=== PATIENT | female | born 1995 | race Caucasian/White ===

== ENCOUNTER 2023-11-16 15:27 | Inpatient (IN) | payer OTHER ==
[~2023-11-16] VITALS: Ht 185.4 cm; Wt 135.9 kg
[~2023-11-16 15:27] MED LIST: IBUPROFEN200 M1 PO
[2023-11-17] VITALS (37 sets, daily range): BP systolic 114–156; BP diastolic 59–87; PULSE 73–106; TEMP 97.9–98.2
[2023-11-17] MEDS ORDERED: LR & Oxytocin 500 ML IV SCH ×2 (06:30)
[2023-11-17] MEDS ORDERED: LR 1,000 ML IV SCH (06:30)
--- NOTE | 2023-11-17 06:30 | NUR ---
Pt arrived on unit ambulatory for scheduled induction of labor. Pt denies any regular contractions, leaking of fluid or vaginal bleeding and reports normal movement. EFM and toco monitors started. Difficult tracing FHR. Audible and palpable movement noted. Vital signs WNL. Plan of care for induction reviewed with pt and at the bedside. Both verbalized an understanding, agreed with the plan and states no questions or concerns.
[2023-11-17] MEDS ORDERED: PRENATAL (06:57)
[2023-11-17 07:37] LABS: BASO % 0.5 % (0.0-2.0); EOS # 0.2 K/mm3 (0.0-0.7); EOS % 1.9 % (0.0-4.0); GRAN # 6.7 K/mm3 (1.4-6.5); GRAN % 77.6 % (42.2-75.2); HEMOGLOBIN 11.4 g/dl (12.5-16.0); LYMPH # 1.2 K/mm3 (1.2-3.4); LYMPH % 14.2 % (20.0-51.0); MEAN CELL VOLUME 81 fl (80.0-100.0); MEAN CORPUSCULAR HEMOGLOBIN 28 pg (27-31); MEAN CORPUSCULAR HGB CONC 34 g/dl (33.0-37.0); MEAN PLATELET VOLUME 10.3 fl (7.4-10.4); MONO # 0.5 K/mm3 (0.1-0.6); MONO % 5.2 % (1.7-9.3); PLATELET COUNT 219 K/mm3 (130-400); RED BLOOD COUNT 4.13 M/mm3 (4.10-5.30)
[2023-11-17 07:39] LABS: HEMATOCRIT 33.6 % (37.0-47.0)
--- NOTE | 2023-11-17 09:05 | NUR ---
Dr. Pierce at the bedside. FHR tracing reviewed. SVE and AROM done per Dr. Pierce. scalp electrode reviewed with pt and placed by Dr. Pierce.
[2023-11-17] MEDS ORDERED: ROPivacaine PF 0.2% 200 ML IV ONE (10:20)
--- NOTE | 2023-11-17 10:30 | NUR ---
Difficult tracing ctx while pt sitting up for epidural placement.
--- NOTE | 2023-11-17 10:35 | NUR ---
1020 - JEFERSON Shin at the bedside for epidural placement per pt's request. Pt sitting up on the edge of the bed. Time out done. 1035 - Test dose given per JEFERSON Shni. See anesthesia records for details. 1040 - Assisted pt back to supine position with left wedge. Monitors adjusted. Plan of care reviewed.
--- NOTE | 2023-11-17 10:45 | NUR ---
Difficult tracing ctx while pt sitting up for epidural placement.
[2023-11-17] MEDS ORDERED: diphenhydrAMINE 50 MG/ML 1 ML VIAL IV PRN (11:00)
[2023-11-17] MEDS ORDERED: ePHEDrine 50 MG/10 ML VIAL IV PRN (11:00)
[2023-11-17] MEDS ORDERED: diphenhydrAMINE 25 MG CAP PO PRN (11:00)
[2023-11-17] MEDS ORDERED: Ondansetron 4 MG/2 ML VIAL IV PRN (11:00)
[2023-11-17] MEDS ORDERED: Naloxone 0.4 MG/ML VIAL IV PRN ×2 (11:00→16:30)
--- NOTE | 2023-11-17 16:01 | NUR ---
1554- Dr. Pierce at the bedside. Pt set up for delivery. 1556- Pushing started. 1601- of viable male . placed on mom's abdomen. Cords clamped and cut. Care of the given to nursery RN Mindy at the bedside. 1605- of placenta. Pitocin started at 333ml/hr per order and protocol. Fundus firm and lochia WNL.
[2023-11-17] MEDS ORDERED: Ibuprofen 600 MG TAB PO SCH (16:30)
[2023-11-17] MEDS ORDERED: oxyCODONE 5 MG TAB PO PRN (16:30)
[2023-11-17] MEDS ORDERED: Witch Hazel 50% Pads Bulk TUB TP PRN (16:30)
[2023-11-17] MEDS ORDERED: Acetaminophen 500 MG TAB PO SCH (16:30)
[2023-11-17] MEDS ORDERED: Phenylephrine/Mineral Oil/Petrolatum 57 GM TUBE RC PRN (16:30)
[2023-11-17] MEDS ORDERED: Magnes Hydrox (MOM) 80 MG/ML 30 ML CUP PO PRN (16:30)
[2023-11-17] MEDS ORDERED: Measles/Mumps/Rubella Virus Vaccine Live w Diluent 0.5 ML VIAL SQ SCH (16:30)
[2023-11-17] MEDS ORDERED: Mag/Al Hydrox/Simeth Susp 30 ML CUP PO PRN (16:30)
[2023-11-17] MEDS ORDERED: Loratadine 10 MG TAB PO PRN (16:30)
[2023-11-17] MEDS ORDERED: Sennosides/Docusate 8.6-50 MG TAB PO SCH (17:00)
[2023-11-17] MEDS ORDERED: traZODone 50 MG TAB PO PRN (21:00)
[2023-11-18 00:05] VITALS: BP 119/72; PULSE 87; TEMP 97.7
[2023-11-18 04:00] VITALS: BP 112/60; PULSE 85; TEMP 98.1
[2023-11-18 08:43] VITALS: BP 131/77; PULSE 91; TEMP 98.7
[2023-11-18] MEDS ORDERED: IBU600 MG PO (08:48)
--- NOTE | 2023-11-18 12:18 | NUR ---
Initial visit attempt; Certified Nurses' Aide left card offering congratulations and God's blessings for the of their son who was undergoing a "Hearing Screening." Information regarding the availability of Spiritual Care was included on card to family.
== END 2023-11-18 17:45 | disposition home or self-care (01) | DRG 806 ==
LOC: LDR 11-17 06:20 → OB 11-18 05:31
PROVIDERS: ADMIT Obstetrics & Gynecology
PROC: 10E0XZZ Delivery of Products of Conception, External Approach (ICD-10-PCS; principal; 2023-11-17)
PROC: 0HQ9XZZ Repair Perineum Skin, External Approach (ICD-10-PCS; 2023-11-17)
PROC: 10907ZC Drainage of Amniotic Fluid, Therapeutic from Products of Conception, Via Natural or Artificial Opening (ICD-10-PCS; 2023-11-17)
PROC: 3E033VJ Introduction of Other Hormone into Peripheral Vein, Percutaneous Approach (ICD-10-PCS; 2023-11-17)
DX: O99.12 Other diseases of the blood and blood-forming organs and certain disorders involving the immune mechanism complicating childbirth (principal); D68.51 Activated protein C resistance; Z37.0 Single live birth; O69.81X0 Labor and delivery complicated by cord around neck, without compression, not applicable or unspecified; O70.0 First degree perineal laceration during delivery; O99.214 Obesity complicating childbirth; Z86.16 Personal history of COVID-19; Z3A.39 39 weeks gestation of pregnancy; Z23 Encounter for immunization
CPT/HCPCS: J2590; J2795; J7120